=== PATIENT | female | born 1955 | race Caucasian/White ===

== ENCOUNTER 2022-08-12 07:59 | Day surgery (SDC) | payer OTHER ==
[2022-08-07 15:24] VITALS: BMI 30.4
[~2022-08-12 07:59] MED LIST: LACTATED RINGERS 1,000 ML IV SCH; LIDOCAINE 1% (10MG/ML) FOR IV START INTRADERMA PRN
[2022-08-12 08:16] VITALS: RESP 16; TEMP 96.8
[2022-08-12] MEDS ORDERED: PROPOFOL 10 MG/ML 20 ML VIAL IV ONE (08:33)
--- NOTE | 2022-08-12 08:38 | P.GSHP ---
History of Present Illness H&P Date: 08/12/22 Chief Complaint: colon cancer screening 66-year-old female here for colonoscopy. Last colonoscopy 9 years ago. 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 No bowel complaints. Past Medical History Past Medical History: Asthma, Cancer, Thyroid Disorder Additional Past Medical History / Comment(s): CANCER OF COLON , THYROID NODULE History of Any Multi-Drug Resistant Organisms: None Reported Past Surgical History: Bowel Resection, Section, Cholecystectomy, Hysterectomy Additional Past Surgical History / Comment(s): THYROID-PARTIAL REMOVAL, C SECTION X2, HAD RIGHT AND LEFT OOPHERECTOMY Past Anesthesia/Blood Transfusion Reactions: Postoperative Nausea & Vomiting (PONV) Smoking Status: Never smoker - Past Family History Mother Family Medical History: No Reported History Father Family Medical History: Cancer Medications and Allergies Home Medications Medication Instructions Recorded Confirmed Type Ergocalciferol [Vitamin D2 (1250 1,250 mcg PO WHITE 08/07/22 08/12/22 History Mcg = 86106 Iu)] Loratadine [Claritin] 10 mg PO DAILY PRN 08/07/22 08/12/22 History Allergies Allergy/AdvReac Type Severity Reaction Status Date / Time amoxicillin Allergy Rash/Hives Verified 08/12/22 08:13 Penicillins Allergy Rash/Hives Verified 08/12/22 08:13 Surgical - Exam Vital Signs Temp Pulse Resp BP Pulse Ox 96.8 F L 79 16 184/80 97 08/12/22 08:14 08/12/22 08:14 08/12/22 08:14 08/12/22 08:14 08/12/22 08:14 Physical exam: General: Well-developed, well-nourished HEENT: Normocephalic, sclerae nonicteric Abdomen: Nontender, nondistended Extremities: No edema Neuro: Alert and oriented Assessment and Plan (1) Colon cancer screening Narrative/Plan: Will proceed with colonoscopy at this time. Current Visit: Yes Status: Acute Code(s): Z12.11 - ENCOUNTER FOR SCREENING FOR MALIGNANT NEOPLASM OF COLON SNOMED Code(s): 395855622
--- NOTE | 2022-08-12 08:50 | P.PCN ---
Date of Procedure: 08/12/22 Procedure(s) Performed: PREOPERATIVE DIAGNOSIS: Colon cancer screening POSTOPERATIVE DIAGNOSIS: Diverticulosis PROCEDURE: Colonoscopy ANESTHESIA: MAC SURGEON: Ricardo Houston M.D. SPECIMENS: None ENDOSCOPIC PROCEDURE: The patient was placed on the endoscopy table in the left decubitus position. The Olympus colonoscope was inserted into the anus and passed under direct visualization to the ileocolonic anastomosis. From that point the scope was slowly withdrawn inspecting all surfaces carefully. There were no neoplastic inflammatory or polypoid lesions throughout the transverse, descending, sigmoid and rectum. There was mild left-sided diverticulosis noted. Digital rectal examination was normal. The patient was taken to the recovery room in stable condition per anesthesia guidelines. RECOMMENDATIONS: Resume diet. Repeat colonoscopy in 5 years given the patient's previous history of colon cancer
[2022-08-12 09:07] VITALS: BP 122/74; PULSE 71
== END 2022-08-12 09:34 | disposition home or self-care (01) ==
LOC: ORWHC2ENDO 07:59
PROVIDERS: ATTEND Surgery
DX: Z12.11 Encounter for screening for malignant neoplasm of colon (principal); K57.30 Diverticulosis of large intestine without perforation or abscess without bleeding; Z85.038 Personal history of other malignant neoplasm of large intestine; Z90.49 Acquired absence of other specified parts of digestive tract; J45.909 Unspecified asthma, uncomplicated; E66.9 Obesity, unspecified; Z68.39 Body mass index [BMI] 39.0-39.9, adult; E04.1 Nontoxic single thyroid nodule; Z87.891 Personal history of nicotine dependence; Z79.899 Other long term (current) drug therapy; Z88.0 Allergy status to penicillin
CPT/HCPCS: 45378; J2704

== ENCOUNTER → 2023-12-07 | Outpatient (CLI) | payer MEDICARE ==
[2023-12-07 14:03] LABS: African American GFR (CKD) >90 (>60 ml/min/1.73 sqM); Blood Urea Nitrogen 13 mg/dL (7-17); Non-African American GFR(CKD) >90 (>60 ml/min/1.73 sqM)
--- NOTE | 2023-12-07 19:51 | CT ---
EXAMINATION TYPE: CT ChestAbdPelvis w con CT DLP: 1710 mGycm, Automated exposure control for dose reduction was used. DATE OF EXAM: 12/07/2023 3:22 PM COMPARISON: None. CLINICAL INDICATION: Female, 68 years old with history of C96.Z LYMPHOMA; PHH, lymphoma Technique: CT ChestAbdPelvis w con; Multiple axial images were obtained. Two-dimensional coronal and sagittal reconstructions were obtained. Contrast used:100 mL of Isovue 300 with IV Contrast, Oral contrast used: with Oral Contrast Findings: CHEST: LUNGS/ PLEURA: No focal consolidation, pneumothorax or pleural effusion. Left upper lung nodule possibly calcified measuring 3 mm. AIRWAY: Patent and unremarkable. HEART: Size within normal limits. MEDIASTINUM: No gross evidence of adenopathy. VASCULATURE: No aortic aneurysm. MUSCULOSKELETAL: No acute osseous abnormalities. SOFT TISSUES/LYMPH NODES: Left thyroid nodule measuring 11 mm LOWER NECK: No significant findings. ABDOMEN: ABDOMEN LIVER: Unremarkable GALLBLADDER AND BILE DUCTS: The gallbladder is surgically absent. PANCREAS: Unremarkable. SPLEEN: Unremarkable. ADRENAL GLANDS: Unremarkable. KIDNEYS AND URETERS: No evidence of hydronephrosis or renal calculus. The ureters are unremarkable. PELVIS BLADDER: Unremarkable REPRODUCTIVE: The uterus is surgically absent. ABDOMEN & PELVIS STOMACH AND BOWEL: No evidence of bowel obstruction. Few scattered colonic diverticula. PERITONEUM/RETROPERITONEUM: No evidence of pneumoperitoneum or free fluid. VASCULATURE: No evidence of aortic aneurysm. MUSCULOSKELETAL: Subacute left inferior pubic ramus and superior pubic ramus fractures. LYMPH NODES: No gross evidence for lymphadenopathy. Right inguinal lymph nodes are mildly enlarged me asuring up to 12 mm. There is a soft tissue mass anterior to the right thigh near these lymph nodes m easuring up to 6.4 x 1.8 x 3.0 cm. SOFT TISSUE/ABDOMINAL WALL: Left ventral wall fat-containing hernia inferior left of the umbilicus. IMPRESSION: 1. Right anterior thigh mass with enlarged right inguinal lymph nodes which could be compatible with patient's history of lymphoma. 2. No acute thoracic or abdominal process. 3. Ventral wall fat-containing hernia. 4. Left thyroid nodule which can be further characterized with thyroid ultrasound if not recently pe rformed. 5. Subacute fractures of the left inferior and superior pubic ramus. Correlate for history of trauma . [facility], , 12/07/2023 7:49 PM
== END | disposition home or self-care (01) ==
LOC: RADCTMAIN 13:18
PROVIDERS: ATTEND Internal Medicine Hematology & Oncology
DX: S32.592A Other specified fracture of left pubis, initial encounter for closed fracture (principal); R22.41 Localized swelling, mass and lump, right lower limb; K46.9 Unspecified abdominal hernia without obstruction or gangrene
CPT/HCPCS: 82565; 84520; 71260; 74177; 36415; Q9967

== ENCOUNTER 2024-01-01 12:04 | Day surgery (SDC) | payer MEDICARE ==
[2024-01-01 12:37] VITALS: RESP 16; TEMP 98
[2024-01-01 13:17] VITALS: BP 150/85; PULSE 74
--- NOTE | 2024-01-01 18:21 | US ---
EXAMINATION TYPE: US biopsy soft tissue/muscle DATE OF EXAM: 01/01/2024 1:23 PM CLINICAL INDICATION:Female, 68 years old with history of C96.Z OT MALIG NEOPLM OF LYMPHOID, HEMATPOET C AND; COMPARISON: CT 12/07/2023 ATTENDING: Dr. Guerra TECHNIQUE: Ultrasound guided percutaneous base 6.4 x 1.7 x 1.8 cm heterogeneous soft tissue mass along the anter ior aspect of the upper right thigh, possibly enlarged lymph node, using coaxial method. The patient was monitored by a qualified trained nurse independent of the Radiologist during sedation . FINDINGS: The procedure was explained to the patient. All questions were answered and informed consent was obta ined. The patient was placed supine and sagittal ultrasound images of the possible enlarged lymph node in t he anterior upper right thigh were obtained. The overlying skin was marked and prepped using sterile method. Timeout was taken per protocol. Follo wing administration 1% local lidocaine anesthesia, a 17/18 gauge Bard biopsy system was advanced with needle tip visualized within the lesion. Two 18-gauge core biopsies were obtained, placed in formalin solution, and sent to pathology. The needle was removed. Other additional ultrasound scanning shows no abnormal fluid collection or ev ident complication. Hemostasis was obtained and a dressing was placed. Patient was taken for postprocedure observation in stable condition. IMPRESSIONS: Status post ultrasound guided percutaneous biopsy of the 6.4 cm mass along the anterior aspect of the right upper thigh, possibly enlarged lymph node in a patient with history of remote lymphoma. Pathol ogy results pending. [facility], , 01/01/2024 6:18 PM
== END 2024-01-01 13:22 | disposition home or self-care (01) ==
LOC: RADPROMAIN 12:04
PROVIDERS: ATTEND Internal Medicine Hematology & Oncology
DX: C96.Z Other specified malignant neoplasms of lymphoid, hematopoietic and related tissue (principal)
CPT/HCPCS: 20206; 76942; 88307; 88341; 88342

== ENCOUNTER → 2024-01-13 | Outpatient (CLI) | payer MEDICARE ==
--- NOTE | 2024-01-14 08:56 | CA ---
Transthoracic Echo Report Name: Tonie Patton Age: 68 Gender: F : 1955 Exam Date: 01/13/2024 13:02 Exam Location: [facility] Ht (in): 59 Wt (lb): 190 Ordering Physician: Jeremy Holland MD Attending/Referring Phys: Senior Warehouse Clerk May Hylton RDCS Procedure CPT: Indications: Z01.818 Pre-procedural Cardiac Hx: Technical Quality: Fair Contrast 1: Total Dose (mL): Contrast 2: Total Dose (mL): MEASUREMENTS (Male / Female) Normal Values 2D ECHO LV Diastolic Diameter PLAX 3.5 cm 4.2 - 5.9 / 3.9 - 5.3 cm LV Systolic Diameter PLAX 2.4 cm IVS Diastolic Thickness 1.0 cm 0.6 - 1.0 / 0.6 - 0.9 cm LVPW Diastolic Thickness 0.9 cm 0.6 - 1.0 / 0.6 - 0.9 cm LV Relative Wall Thickness 0.5 LVOT Diameter 2.3 cm LA Volume 58.4 cm??? 18 - 58 / 22 - 52 cm??? LA Volume Index 30.1 cm???/m??? 16 - 28 cm???/m??? Ascending Aorta Diameter 3.1 cm DOPPLER AV Peak Velocity 146.7 cm/s AV Peak Gradient 8.6 mmHg AV Mean Velocity 107.1 cm/s AV Mean Gradient 5.0 mmHg AV Velocity Time Integral 34.9 cm LVOT Peak Velocity 109.2 cm/s LVOT Peak Gradient 4.8 mmHg LVOT Velocity Time Integral 25.2 cm LVOT Stroke Volume 103.0 cm??? LVOT Stroke Volume Index 57.1 ml/m??? LVOT Cardiac Index 3447.5 cm???/min???m??? AV Area Cont Eq vti 3.0 cm??? AV Area Cont Eq pk 3.0 cm??? MV Area PHT 4.1 cm??? Mitral E Point Velocity 64.9 cm/s Mitral A Point Velocity 57.4 cm/s Mitral E to A Ratio 1.1 MV Deceleration Time 183.5 ms TR Peak Velocity 243.6 cm/s TR Peak Gradient 23.7 mmHg PV Peak Velocity 91.4 cm/s PV Peak Gradient 3.3 mmHg FINDINGS Left Ventricle Left ventricular ejection fraction is estimated at 55-60 %. Left ventricular cavity size normal. Left ventricular wall thickness normal. No obvious regional wall motion abnormalities. Abnormal average global longitudinal strain of the left ventricle with a value of -17 %. Right Ventricle Normal right ventricular size and function. Right ventricular systolic pressure within normal limits. Right Atrium Right atrium not well visualized. Left Atrium Mildly increased left atrial volume. Mitral Valve Structurally normal mitral valve. No evidence for mitral valve prolapse. No mitral stenosis. Trace mitral regurgitation. Aortic Valve Trileaflet aortic valve. No aortic valve stenosis or regurgitation. Tricuspid Valve Structurally normal tricuspid valve. No tricuspid stenosis. Mild tricuspid regurgitation. Pulmonic Valve Pulmonic valve not well visualized. No pulmonic stenosis. No pulmonic regurgitation. Pericardium No pericardial effusion. Aorta Normal size aortic root and proximal ascending aorta. CONCLUSIONS Normal LV size and systolic function. Minimal mitral and tricuspid regurgitation. No pericardial effusion. No pulmonary hypertension Previewed by: Dr. Birgit Wolff MD (Electronically Signed) Final Date: 14 January 2024 08:56
== END | disposition home or self-care (01) ==
LOC: RADECHMAIN 12:53
PROVIDERS: ATTEND Internal Medicine Hematology & Oncology
CPT/HCPCS: 93306

== ENCOUNTER → 2024-01-15 | Outpatient (CLI) | payer MEDICARE ==
--- NOTE | 2024-01-15 15:14 | PE ---
EXAMINATION TYPE: PET CT fusion skull to thigh DATE OF EXAM: 01/15/2024 CLINICAL INDICATION:Female, 68 years old with history of C83.35 LYMPHOMA; TECHNIQUE: Following the intravenous administration of 12.83 mCi of F-18 FDG, whole body images are performed from the skull base to the midthigh. Images are reviewed on the computer in the coronal, axial, and sagittal planes. Reconstructed rotating images are created on independent workstation and reviewed on the computer. A non-contrast CT is performed in conjunction with the PET scan. Glucose level 105 mg/dL CT DLP: 846.84 mGycm, Automated exposure control for dose reduction was used. COMPARISON: CT 12/07/2023, PET/CT None, MRI: None FINDINGS: Mediastinal SUV mean is 2.6. Hepatic parenchyma SUV mean is 3.36. SKULL BASE AND NECK: * Uptake near the pharynx posteriorly bilaterally max SUV 15.8 possibly within the longus coli muscl es. CHEST, MEDIASTINUM, AND HILAR REGION: Suspicious uptake identified examples include: * Right axillary lymph node max SUV 14.2 * Left axillary lymph node max SUV 14.1 * These lymph nodes are not enlarged and have fatty hilum. Measuring up to 5 mm and cortical thickne ss bilaterally ABDOMEN AND PELVIS: * Uptake within the area of prior bowel surgical change max SUV 9.0. * Right inguinal lymph node max SUV 35.1r measuring up to 12 mm. * Anterior thigh soft tissue measuring at least 27 x 20 x 69 cm MUSCULOSKELETAL STRUCTURES: Suspicious uptake identified examples include: * Right iliac crest max SUV 4.3. * Left iliac bone near the sacroiliac joint max SUV 7.4 * Left pubic symphysis max SUV 14.8 * Heterogenous throughout the vertebral bodies 100 which appears to be physiologic. * Soft tissues of the right back max SUV 9.3 lymph node within the myofascial planes measuring 4 mm in short axis. * Uptake within right rib 10 possibly due to fracture max SUV 21.6 * Uptake along the left inferior pubic ramus suspicious for fracture changes max SUV 7.[address]: * Left thyroid calcified nodules. * Mild cardiomegaly. * Hepatic steatosis. * Surgical clips scattered throughout the abdomen mesentery. * Fat-containing umbilical hernia. * Colonic diverticulosis. IMPRESSION: 1. Anterior right leg lymphadenopathy/soft tissue mass along with 2 axillary lymph nodes and osseous lesions concerning for malignancy. Additionally there is a right posterior back lesion within the my ofascial planes likely representing lymph node. 2. Indeterminate uptake posterior nasal pharynx anterior to the vertebral bodies possibly within the longus colli muscles. 3. Indeterminate uptake at the site of prior surgical changes in the colon. Attention follow-up imag ing. [facility], Workstation: [id number], 01/15/2024 3:12 PM
== END | disposition home or self-care (01) ==
LOC: RADPETMAIN 12:20
PROVIDERS: ATTEND Internal Medicine Hematology & Oncology
CPT/HCPCS: 78815

== ENCOUNTER 2024-01-18 10:19 | Day surgery (SDC) | payer MEDICARE ==
[~2024-01-18 10:19] MED LIST changes: +HYDROmorphone 0.5 MG/0.5 ML SYRINGE IVP PRN; -LIDOCAINE 1% (10MG/ML) FOR IV START INTRADERMA PRN; +MIDAZOLAM 2 MG/2 ML VIAL IV PRN; +Pre Op ABX Message 1 EACH MISC MISCELLANE ONE
[2024-01-18 11:04] VITALS: RESP 16
[2024-01-18] MEDS: IV FLUID CONTINUATION 1,000 ML IV ONE ×3 (11:10→13:21)
[2024-01-18] MEDS: LACTATED RINGERS 1,000 ML IV SCH (11:11)
[2024-01-18] MEDS: LIDOCAINE 1% (10MG/ML) FOR IV START INTRADERMA STA (11:12)
[2024-01-18] MEDS: ACETAMINOPHEN TAB 500 MG TAB PO PRN (11:15)
[2024-01-18] MEDS: HEPARIN SODIUM,PORCINE 5,000 UNIT/ML 1 ML VIAL SQ PRN (11:16)
[2024-01-18] MEDS: ONDANSETRON 4 MG/2 ML VIAL IVP ONE (11:16)
[2024-01-18] MEDS: DEXAMETHASONE SOD PHOSPHATE 4 MG/ML 1 ML VIAL IV ONE (11:16)
--- NOTE | 2024-01-18 11:41 | P.GSHP ---
History of Present Illness H&P Date: 01/18/24 Chief Complaint: Lymphoma 68-year-old female recently diagnosed with lymphoma. Patient here today for Port-A-Cath placement. Has not had a port previously. Does have poor IV access she says. Past Medical History Past Medical History: Asthma, Cancer, GERD/Reflux, Thyroid Disorder Additional Past Medical History / Comment(s): hx CANCER OF COLON- surgery , current nonhodgkins lymphoma b cell,THYROID NODULE History of Any Multi-Drug Resistant Organisms: None Reported Past Surgical History: Bowel Resection, Section, Cholecystectomy, Hysterectomy Additional Past Surgical History / Comment(s): THYROID-PARTIAL REMOVAL, C SECTION X2, HAD RIGHT AND LEFT OOPHERECTOMY, colonoscopy Past Anesthesia/Blood Transfusion Reactions: Postoperative Nausea & Vomiting (PONV) Smoking Status: Never smoker - Past Family History Mother History Unknown: Yes Family Medical History: No Reported History Father Family Medical History: Cancer Additional Family Medical History / Comment(s): lung cancer Medications and Allergies Home Medications Medication Instructions Recorded Confirmed Type Ergocalciferol [Vitamin D2 (1250 1,250 mcg PO SA 08/07/22 01/14/24 History Mcg = 32346 Iu)] Loratadine [Claritin] 10 mg PO DAILY PRN 08/07/22 01/14/24 History [facility] Vitamin 1 tab PO DAILY 01/14/24 01/14/24 History Allergies Allergy/AdvReac Type Severity Reaction Status Date / Time amoxicillin Allergy Rash/Hives Verified 01/14/24 11:46 Penicillins Allergy Rash/Hives Verified 01/14/24 11:46 Surgical - Exam Vital Signs Temp Pulse Resp BP Pulse Ox 98.1 F 78 16 168/75 99 01/18/24 11:03 01/18/24 11:03 01/18/24 11:03 01/18/24 11:03 01/18/24 11:03 Physical exam: General: Well-developed, well-nourished HEENT: Normocephalic, sclerae nonicteric Abdomen: Nontender, nondistended Extremities: No edema Neuro: Alert and oriented Assessment and Plan (1) Lymphoma Narrative/Plan: Will proceed with Port-A-Cath placement at this time. Risks of bleeding, infection, DVT, pneumothorax, catheter malfunction, anesthesia related complications were discussed. The patient understands and wishes to proceed. Current Visit: Yes Status: Acute Code(s): C85.90 - NON-HODGKIN LYMPHOMA, UNSPECIFIED, UNSPECIFIED SITE SNOMED Code(s): 942688326
[2024-01-18] MEDS ORDERED: fentaNYL (PF) 50 MCG/ML 2 ML AMP ONE (11:44)
[2024-01-18] MEDS ORDERED: LIDOCAINE 1% INJ 10MG/ML (20 ML MDV) ONE (11:44)
[2024-01-18] MEDS ORDERED: ceFAZolin 1 GM/50 ML BAG (PMX) ONE (11:44)
[2024-01-18] MEDS ORDERED: PROPOFOL 10 MG/ML 20 ML VIAL IV ONE (11:44)
[2024-01-18] MEDS: LIDOCAINE 1% INJ 10MG/ML (20 ML MDV) SQ ONE (12:14)
[2024-01-18] MEDS ORDERED: NALOXONE 0.4 MG/ML 1 ML VIAL IV PRN (12:41)
--- NOTE | 2024-01-18 12:43 | P.OP ---
Date of Procedure: 01/18/24 Procedure(s) Performed: PREOPERATIVE DIAGNOSIS: Lymphoma POSTOPERATIVE DIAGNOSIS: Same PROCEDURE: Port-A-Cath placement with fluoroscopic and ultrasound guidance SURGEON: Rosemarie EBL: Minimal ANESTHESIA: General COMPLICATIONS: None OPERATIVE PROCEDURE: Patient was brought and placed on the operative table in the supine position. The patient was placed under general anesthesia at that time. The chest and neck were prepped and draped in usual sterile fashion. The ultrasound probe was used to identify the location of the right internal jugular vein. The skin was localized with lidocaine. The Seldinger needle was advanced into the IJ under ultrasound guidance. The wire was advanced through the needle under fluoroscopic guidance into the superior vena cava. A port pocket was created in the right infraclavicular location. The catheter was tunneled from the wire entrance site to the port pocket. The port was then connected to the catheter. The dilator introducer was threaded over the guidewire. The guidewire and dilator were then removed. The catheter was advanced through the introducer and introducer was then removed. The tip was seen to be in the right atrial junction via fluoroscopy. A picture of the radiograph showing the tip of the catheter was taken. Port was flushed with both saline and a Hep-Lock solution. There was good flow both in and out of the port. The port was sutured in underlying tissues using 3-0 silk sutures. The subcutaneous tissues were reapproximated using 3-0 Vicryl sutures and the skin at both locations using 4-0 Monocryl sutures. Skin glue and sterile dressings then applied. DISPOSITION: Stable to recovery room
--- NOTE | 2024-01-18 13:00 | FL ---
EXAMINATION TYPE: FL guided central line placemt DATE OF EXAM: 01/18/2024 12:34 PM COMPARISON: Pre Operative Images if available both CT/MRI or plain film CLINICAL INDICATION: Female, 68 years old with history of Port-A-Cath Insertion; TECHNIQUE: FL guided central line placemt, multiple fluoroscopic images provided for procedure. Total fluoroscopy time: 2 seconds Total submitted images to PACS: 1 DAP: 0.11031 mGym2 Gycm2 uGym2 cGycm2 or equivalent. FINDINGS: Fluoroscopic imaging for Port-A-Cath insertion no evidence for pneumothorax. Multilevel degeneration changes of the spine. IMPRESSION: 1. No evidence for intraoperative complication. 2. Please see the operative/procedural note for further details. [facility], , 01/18/2024 12:58 PM
[2024-01-18 13:13] VITALS: TEMP 96.8
--- NOTE | 2024-01-18 13:25 | XR ---
EXAMINATION TYPE: XR chest 1V confirm line plcmt DATE OF EXAM: 01/18/2024 1:14 PM COMPARISON: None CLINICAL INDICATION: Female, 68 years old with history of Check Line placement; TECHNIQUE: XR chest 1V confirm line plcmt Frontal view of the chest. FINDINGS: Lungs/Pleura: There is no evidence of pleural effusion, focal consolidation, or pneumothorax. Pulmonary vascularity: Unremarkable. Heart/mediastinum: Cardiomediastinal silhouette is unremarkable. Musculoskeletal: No acute osseous pathology. Other findings: None Lines/Tubes: [id number] projecting over the right hemithorax with distal tip at the cavoatrial junction. IMPRESSION: No acute cardiopulmonary disease/process. No evidence for pneumothorax. [facility], , 01/18/2024 1:22 PM
[2024-01-18 14:07] VITALS: PULSE 63
[2024-01-18 14:08] VITALS: BP 149/67
== END 2024-01-18 14:19 | disposition home or self-care (01) ==
LOC: OR 10:19
PROVIDERS: ATTEND Surgery
DX: C85.90 Non-Hodgkin lymphoma, unspecified, unspecified site (principal); J45.909 Unspecified asthma, uncomplicated; K21.9 Gastro-esophageal reflux disease without esophagitis; E04.1 Nontoxic single thyroid nodule; Z88.0 Allergy status to penicillin; Z85.038 Personal history of other malignant neoplasm of large intestine; Z90.710 Acquired absence of both cervix and uterus; Z80.1 Family history of malignant neoplasm of trachea, bronchus and lung
CPT/HCPCS: 36561; 77001; C1788; J1644; J1100; J2405; J2003; J3010; J1642; J0690; J2704

== ENCOUNTER → 2024-03-24 | Outpatient (CLI) | payer MEDICARE ==
--- NOTE | 2024-03-28 10:56 | PE ---
EXAMINATION TYPE: PET CT fusion skull to thigh DATE OF EXAM: 03/24/2024 COMPARISON: Chest abdomen pelvis CT 12/07/2023 Prior PET/CT: 01/15/2024 CLINICAL INDICATION: Female, 68 years old with history of C83.35 LYMPHOMA, TECHNIQUE: Following the intravenous administration of 13.2 mCi of F-18 FDG, whole body images are p erformed from the skull base to the midthigh. Images are reviewed on the computer in the coronal, ax ial, and sagittal planes. Reconstructed rotating images are created on independent workstation and r eviewed on the computer. A localization and attenuation correction CT is performed in conjunction w ith the PET scan. DLP: 818.3 mGycm SCAN: Subsequent Blood glucose: 123 mg/dL Average Mediastinum SUV: 1.57 Average Liver SUV: 2.64 FINDINGS: OSSEOUS STRUCTURES: There is extensive uptake throughout the axial and visualized appendicular skelet on. Essentially all osseous structures have increased uptake. This diffuse and fairly homogenous. Gil atment related changes are favored. Differential would have to include extensive metastasis. NECK: The area of the posterior left maxilla, image 30, SUV 6.17 more likely related to periodontal disease. The right mandible, image 35 may be related to osseous changes discussed above. Uptake in th e posterior left mandible image 37 may be related to osseous changes. Soft tissue uptake is not ident ified. THORAX: There may be some focal uptake within the right infraspinatus muscle near the tip of the scap gavin. It is unclear whether this is misregistration between the PET and CT or focal uptake soft tissue abnormality. Discrete soft tissue mass is not evident. No suspicious mediastinal or hilar adenopathy with abnormal uptake is evident. ABDOMEN: No suspicious uptake to suggest abnormal uptake within lymph nodes is evident. No soft tissu e uptake identified. PELVIS: No suspicious uptake to suggest abnormal uptake within lymph nodes is evident. No soft tissue uptake identified. LOCALIZATION CT: Anterior pelvic wall hernia containing mesenteric fat within the mid pelvis. Postsur gical changes within the bowel is evident COMPARISON: Previous uptake within the small axillary lymph nodes is not evident on the current exami nation. Previous abnormal adenopathy with uptake in the right inguinal region is not evident on the c urrent exam. Previous uptake along the right lower posterior ribs not evident on current exam. Minima l residual expansion of the rib may be present, image 122 IMPRESSION: 1. Extensive uptake within the osseous structures diffusely and fairly homogenous likely related to p osttreatment changes. 2. Previous areas of abnormal uptake including the axillary right inguinal, and right rib uptake with out suspicious uptake at this time. [facility], , 03/28/2024 10:54 AM
== END | disposition home or self-care (01) ==
LOC: RADPETMAIN 13:01
PROVIDERS: ATTEND Internal Medicine Hematology & Oncology
DX: C83.35 Diffuse large B-cell lymphoma, lymph nodes of inguinal region and lower limb (principal)
CPT/HCPCS: 78815; A9552

== ENCOUNTER → 2024-09-01 | Outpatient (CLI) | payer MEDICARE ==
[2024-09-01 15:29] LABS: Basophils # (A) 0.06 X 10*3/uL (0.00-0.10); Basophils % (A) 1.1 %; Eosinophils # (A) 0.25 X 10*3/uL (0.04-0.35); Eosinophils % (A) 4.6 %; HCT 43.2 % (37.2-46.3); HGB 13.3 g/dL (12.0-15.0); Lymphocytes # (A) 1.12 X 10*3/uL (0.90-5.00); Lymphocytes % (A) 20.7 %; MCH 27.1 pg (27.0-32.0); MCHC 30.8 g/dL (32.0-37.0); Mean Platelet Volume 11.8 FL (9.5-12.2); Monocytes # (A) 0.45 X 10*3/uL (0.20-1.00); Monocytes % (A) 8.3 %; NRBC Per 100 WBC 0 X 10*3/uL (0.00-0.01); Neutrophils # (A) 3.53 X 10*3/uL (1.80-7.70); Neutrophils % (A) 65.1 %; Platelet Count 220 X 10*3/uL (140-440); RBC 4.91 X 10*6/uL (4.10-5.20); WBC 5.42 X 10*3/uL (4.50-10.00)
== END | disposition home or self-care (01) ==
LOC: LABPAT 11:50
PROVIDERS: ATTEND Surgery
DX: Z01.812 Encounter for preprocedural laboratory examination (principal)
CPT/HCPCS: 85025

== ENCOUNTER 2024-09-02 05:51 | Day surgery (SDC) | payer MEDICARE ==
[2024-08-31 15:14] VITALS: BMI 40.4
[2024-09-02] MEDS: IV FLUID CONTINUATION 1,000 ML IV ONE (06:45)
[2024-09-02] MEDS: LACTATED RINGERS 1,000 ML IV SCH (06:45)
[2024-09-02] MEDS: LIDOCAINE 1% (10MG/ML) FOR IV START INTRADERMA PRN (06:45)
[2024-09-02] MEDS: ONDANSETRON 4 MG/2 ML VIAL IVP ONE (06:50)
[2024-09-02] MEDS: DEXAMETHASONE SOD PHOSPHATE 4 MG/ML 1 ML VIAL IV ONE (06:50)
[2024-09-02 06:59] VITALS: TEMP 97
[2024-09-02] MEDS ORDERED: fentaNYL (PF) 50 MCG/ML 2 ML AMP IVP PRN (07:00)
[2024-09-02] MEDS ORDERED: MIDAZOLAM 2 MG/2 ML VIAL IV PRN (07:00)
[2024-09-02] MEDS ORDERED: HYDROmorphone 0.5 MG/0.5 ML SYRINGE IVP PRN (07:00)
[2024-09-02] MEDS ORDERED: MIDAZOLAM 2 MG/2 ML VIAL ONE (07:25)
[2024-09-02] MEDS ORDERED: PROPOFOL 10 MG/ML 20 ML VIAL IV ONE (07:25)
[2024-09-02] MEDS ORDERED: fentaNYL (PF) 50 MCG/ML 2 ML AMP ONE (07:25)
--- NOTE | 2024-09-02 07:26 | P.GSHP ---
History of Present Illness H&P Date: 09/02/24 Chief Complaint: Lymphoma 68-year-old female here for Port-A-Cath removal. Last used 2 to 3 months ago. No issues with the port. Past Medical History Past Medical History: Asthma, Cancer, GERD/Reflux, Thyroid Disorder Additional Past Medical History / Comment(s): hx CANCER OF COLON- surgery , current nonhodgkins lymphoma b cell- had chemo last dose June 15, 2024,THYROID NODULE. Arthritis History of Any Multi-Drug Resistant Organisms: None Reported Past Surgical History: Bowel Resection, Section, Cholecystectomy, Hysterectomy Additional Past Surgical History / Comment(s): THYROID-PARTIAL REMOVAL, C SECTION X2, HAD RIGHT AND LEFT OOPHERECTOMY, colonoscopy. Insertion of Port A Cath. Past Anesthesia/Blood Transfusion Reactions: No Reported Reaction, Postoperative Nausea & Vomiting (PONV) Additional Past Anesthesia/Blood Transfusion Reaction / Comment(s): No hx of b lood transfusion to date. Smoking Status: Never smoker - Past Family History Mother History Unknown: Yes Family Medical History: No Reported History Father Family Medical History: Cancer Additional Family Medical History / Comment(s): lung cancer Medications and Allergies Home Medications Medication Instructions Recorded Confirmed Type Ergocalciferol [Vitamin D2 (1250 1,250 mcg PO SA 08/07/22 08/31/24 History Mcg = 58318 Iu)] Loratadine [Claritin] 10 mg PO QAM PRN 08/07/22 08/31/24 History [facility] Vitamin 1 tab PO Q48H 01/14/24 08/31/24 History Allergies Allergy/AdvReac Type Severity Reaction Status Date / Time amoxicillin Allergy Rash/Hives Verified 08/31/24 14:56 Penicillins Allergy Rash/Hives Verified 08/31/24 14:56 Surgical - Exam Vital Signs Temp Pulse Resp BP Pulse Ox 97.0 F L 73 16 164/69 98 09/02/24 06:45 09/02/24 06:45 09/02/24 06:45 09/02/24 06:45 09/02/24 06:45 Physical exam: General: Well-developed, well-nourished HEENT: Normocephalic, sclerae nonicteric Abdomen: Nontender, nondistended Extremities: No edema Neuro: Alert and oriented Assessment and Plan (1) Lymphoma Narrative/Plan: Will proceed with Port-A-Cath removal at this time. Current Visit: No Status: Acute Code(s): C85.90 - NON-HODGKIN LYMPHOMA, UNSPECIFIED, UNSPECIFIED SITE SNOMED Code(s): 657481885
[2024-09-02] MEDS: ceFAZolin 2 GM in DEXTROSE 5% IN WATER 50 ML IVPB PRN (07:30)
[2024-09-02] MEDS: BUPIVACAINE (PF) 0.5% 30 ML VIAL SQ ONE ×2 (07:50)
[2024-09-02 08:27] VITALS: RESP 14
[2024-09-02] MEDS ORDERED: NALOXONE 0.4 MG/ML 1 ML VIAL IV PRN (08:30)
--- NOTE | 2024-09-02 08:30 | P.OP ---
Date of Procedure: 09/02/24 Procedure(s) Performed: PREOPERATIVE DIAGNOSIS: Lymphoma POSTOPERATIVE DIAGNOSIS: Same PROCEDURE: Port-A-Cath removal SURGEON: Rosemarie EBL: Minimal ANESTHESIA: Sedation COMPLICATIONS: None OPERATIVE PROCEDURE: Patient was placed in the supine position. The patient was sedated per anesthesia that time. The chest was prepped and draped in the usual sterile fashion. The skin was localized with Marcaine solution. The previous scar was re- excised using a scalpel. The port was easily excised using accommo dation of blunt dissection sharp dissection and electrocautery. The subcutaneous tissues were reapproximated using 3-0 Vicryl sutures. The skin was reapproximated using 4-0 Monocryl sutures. Skin glue was then applied. DISPOSITION: Stable to recovery room
[2024-09-02 08:35] VITALS: BP 100/60; PULSE 73
== END 2024-09-02 08:56 | disposition home or self-care (01) ==
LOC: OR 05:51
PROVIDERS: ATTEND Surgery
DX: C85.90 Non-Hodgkin lymphoma, unspecified, unspecified site (principal); J45.909 Unspecified asthma, uncomplicated; M19.90 Unspecified osteoarthritis, unspecified site; Z85.038 Personal history of other malignant neoplasm of large intestine; Z88.0 Allergy status to penicillin; Z90.49 Acquired absence of other specified parts of digestive tract; Z90.710 Acquired absence of both cervix and uterus; Z79.899 Other long term (current) drug therapy
CPT/HCPCS: 36590; J2250; J1100; J0690; J2405; J3010; J2704; J0665